=== PATIENT | male | born 1970 | race Hispanic/Latino ===

== ENCOUNTER → 2022-02-08 | Outpatient (CLI) | payer OTHER, MEDICARE | END | disposition home or self-care (01) | LOC: SHCH 07:43 | PROVIDERS: ATTEND Internal Medicine Cardiovascular Disease | DX: R94.31 Abnormal electrocardiogram [ECG] [EKG] (principal) | CPT/HCPCS: 93306 ==

== ENCOUNTER → 2022-02-19 | Outpatient (CLI) | payer OTHER, MEDICARE ==
[~2022-02-19] MED LIST: REGADENOSON 0.4 MG/5 ML PF SYG IVP SCH
== END | disposition home or self-care (01) ==
LOC: SHCH 09:11
PROVIDERS: ATTEND Internal Medicine Cardiovascular Disease
DX: R07.9 Chest pain, unspecified (principal)
CPT/HCPCS: 78452; 96374; 93017; J2785; A9500 ×2

== ENCOUNTER → 2024-03-20 | Outpatient (CLI) | payer OTHER ==
[2024-03-20 10:31] LABS: CREATININE 1.2 mg/dL (0.5-1.3)
== END | disposition home or self-care (01) ==
LOC: LAB 09:00
PROVIDERS: ATTEND Surgery
DX: C19 Malignant neoplasm of rectosigmoid junction (principal)
CPT/HCPCS: 36415; 82565; 84520

== ENCOUNTER → 2024-03-30 | Outpatient (CLI) | payer OTHER ==
[~2024-03-30] MED LIST changes: +IOHEXOL 350 MG/ML 100ML INFUS..BTL IV ONE; -REGADENOSON 0.4 MG/5 ML PF SYG IVP SCH
== END | disposition home or self-care (01) ==
LOC: RAH 08:55
PROVIDERS: ATTEND Surgery
DX: C19 Malignant neoplasm of rectosigmoid junction (principal); K57.30 Diverticulosis of large intestine without perforation or abscess without bleeding; N32.89 Other specified disorders of bladder; M47.815 Spondylosis without myelopathy or radiculopathy, thoracolumbar region
CPT/HCPCS: 71270; 74178; Q9967